=== PATIENT | female | born 1940 | race Caucasian/White ===

== ENCOUNTER → 2023-11-01 11:56 | Outpatient (REF) | payer MEDICARE, BC, SELFPAY | LOC: HWWDC 11:56 | PROVIDERS: ATTENDING PHYSICIAN Internal Medicine | DX: Z12.31 Encounter for screening mammogram for malignant neoplasm of breast (principal) | CPT/HCPCS: 77063; 77067 ==

== ENCOUNTER 2024-01-18 18:15 | Inpatient (IN) | payer MEDICARE, BC, SELFPAY ==
[2024-01-18] VITALS (12 sets, daily range): BP systolic 96–145; BP diastolic 60–89; BMI 29.6; BMI 27.4
--- NOTE | 2024-01-18 11:45 | EDRN ---
the PCT entered the pts room to perform EKG and the pt wanted to walk to the bathroom first per the pt and the pts daughter, the pt wanted to get up and walk to the bathroom, the pt was able to ambulate to the bathroom, the pt wanted privacy, this
RN will check back up on the pt
--- NOTE | 2024-01-18 11:50 | EDRN ---
the pt finished in the bathroom and was able to ambulate back to stretcher with no issues, CT called and is ready for the pt, the pt will go to CT first and then the pts EKG will be performed
[2024-01-18 11:54] LABS: % Basophils 0.7 % (0-2); % Immature Granulocytes 0.1 % (0-0.5); % Lymphocytes 23.9 % (20.5-51.1); % Monocytes 10.7 % (1.7-9.3); % Neutrophils 62.6 % (42.2-75.2); Absolute Basophils 0.1 10^3/uL (0-0.2); Absolute Eosinophils 0.1 10^3/uL (0-0.7); Absolute Lymphocytes 1.7 10^3/uL (1.2-3.4); Absolute Monocytes 0.7 10^3/uL (0.1-0.6); Absolute Neutrophils 4.3 10^3/uL (1.4-6.5); Hematocrit 39.9 % (37.0-47.0); Hemoglobin 13.3 g/dL (12.0-16.0); Mean Corp Hgb Conc. 33.3 g/dL (33.0-37.0); Mean Corpuscular Hgb 28.4 pg (27.0-31.0); Mean Corpuscular Volume 85.1 fL (81.0-99.0); Mean Platelet Volume 8.8 fL (7.4-10.4); Nucleated Red Blood Cells % 0 %; Platelet Count 301 10^3/uL (130-400); Red Blood Cell Count 4.69 10^6/uL (4.20-5.40); Red Cell Dist. Width 12.9 % (11.5-14.5); White Blood Cell Count 6.9 10^3/uL (4.8-10.8)
[2024-01-18 12:19] LABS: ALT (SGPT) 15 U/L (0-35); AST (SGOT) 24 U/L (14-36); Albumin 3.8 g/dl (3.5-5.0); Alkaline Phosphatase 94 U/L (38-126); Blood Urea Nitrogen 16 mg/dl (7-17); Calcium 9.6 mg/dl (8.4-10.2); Carbon Dioxide 27 mmol/L (22-30); Chloride 101 mmol/L (98-107); Estimated Creatinine Clearance 64 ml/min; Glucose 99 mg/dl (70-99); Potassium 4.5 mmol/L (3.5-5.1); Sodium 134 mmol/L (135-145); Total Bilirubin 0.5 mg/dl (0.2-1.3); Total Protein 6.3 g/dl (6.3-8.2); eGFR > 60.00
--- NOTE | 2024-01-18 12:34 | EDRN ---
awaiting for provider to see the pt
--- NOTE | 2024-01-18 12:52 | EDRN ---
awaiting for provider to see the pt
--- NOTE | 2024-01-18 13:55 | EDRN ---
Radha Mcmillan ENAMEL PULVERIZER currently at the pts bedside speaking to the pt and the pts daughter
--- NOTE | 2024-01-18 13:55 | ED.GENMED ---
History of Present Illness
<KAMI Bobby - Last Filed: 01/18/24 15:46>
General
Chief Complaint: Eye Problems
Source: patient
Exam Limitations: none
Time Seen by Provider: 01/18/24 13:26
Nursing documentation reviewed up to this point in time: agreed with
Travel History
Have you had any contact with someone who has COVID-19?: No
Do you have any symptoms of coronavirus? Fever > 100 degrees, chills, cough, shortness of breath, sore throat, loss of taste or smell, muscle aches, or headache?: No
History of Present Illness
History of Present Illness:
83-year-old female from [facility] sent to the ER for evaluation for double vision. Patient reports for the past 4 days she has had a headache and she felt soreness in her jaw. She thought this was because of chewing something hard. She was
seen by her family doctor for this. She fraser not typically get headaches . The pain in her jaw seemed to have gone away but she has had persistent headache. Last night she noticed while reading that she was having difficulty focusing and prior to
arrival she was walking and started to have double vision. She reports if she closes her left eye she does not have double vision. Her right eye however is blurry. She denies any actual eye pain or injury
Past History
<KAMI Bobby - Last Filed: 01/18/24 15:46>
Past History
ED Past Medical History: GERD, HTN, Hypercholesterolemia and Other (History of back pain, difficulty swallowing, hiatal hernia, stomach ulcers, arthritis, osteoarthritis, bilateral hearing impairment)
ED Past Surgical History: Other (Right and left knee arthroscopic procedures, right total knee replacement)
Social History
Personal:
Employment: Retired
Review of Systems
<KAMI Bobby - Last Filed: 01/18/24 15:46>
Review of Systems
Allergies reviewed?: Yes
Other source history: family
All Other Systems: ROS reviewed and negative except as documented in HPI and ROS
Constitutional: Reports no symptoms; Denies fever, fatigue or chills
EENT: Reports other (double vision when using both eyes right eye blurry )
Respiratory: Reports no symptoms
Cardiac: Reports no symptoms
ABD/GI: Reports no symptoms
: Reports no symptoms
Musculoskeletal: Reports other (pt has had jaw pain )
Skin: Reports no symptoms; Denies rash
Neurological: Reports headache; Denies dizzy
Endocrine: Reports no symptoms
Psychiatric: Reports no symptoms
Phy Exam
<KAMI Bobby - Last Filed: 01/18/24 15:46>
General Physical Exam
General Presentation: no apparent distress
General age: appears stated age
General Skin: warm and dry
General Habitus: elderly
General Mental: alert
General Hydration: appears well hydrated
ENT Exam
ENT Exam: EOMI and neck supple
Eye Exam
Eye Exam: PERRL, EOMI and other (right pupil reactive but slightly irregular )
Eye Exam General: PERRL: bilateral and EOM intact: bilateral
Pupil Exam: Bilateral: round and reactive
Cardiovascular Exam
Cardiovascular Exam: regular rate/rhythm, no murmur and normal peripheral pulses
Pulmonary Exam
Pulmonary Exam: lungs clear and no respiratory distress
Musculoskeletal Exam
Musculoskeletal Exam: full ROM
Skin Exam
Skin Exam: normal color and warm/dry
Psychiatric Exam
Psychiatric Exam: normal mood/affect
Course
<KAMI Bobby - Last Filed: 01/18/24 15:46>
Orders/Labs/Results
Orders:
Orders
01/18/24 Lunch
Cholesterol Lowering
At Your Request: Full Participation
Does patient need a safe tray?: No
Cholesterol Lowering: Sodium, 2 Gram
01/18/24 11:40
EKG [Electrocardiogram (*1)] Urgent
Reason for Study: Vertigo / Dizzy
EKG- Treatment ONCE
01/18/24 11:42
C-Reactive Protein Urgent
Comment: ADD ON
Complete Blood Count/With Diff Urgent
Comprehensive Metabolic Panel Urgent
Erythrocyte Sed Rate Urgent
Comment: ADD ON
01/18/24 11:44
CT Head W/o Iv Contrast Urgent
Comment:
Reason For Exam: double vision
01/18/24 14:25
Visual Acuity- Treatment ONCE
01/18/24 14:29
Add On- LAB Urgent
Tests Added?: sed rate ; crp
01/18/24 17:53
Admit/Transfer Patient As Directed
Co-Sign Provider:
Level of Care: Inpatient admission
Assign to:: Medical/Surgical
Physician / Group: Ian/Hospitalist
Diagnosis: Temporal arteritis, vision change
Reason for Hospitalization: insomnia, overactive bladder, OA b/l knees s/p TKA, paresthesia left arm,
esophageal dysphagia, glaucoma, Vit D deficiency, diverticulosis, colonic polyps,
hiatal hernia, monoclonal gammopathy
Expected length of stay greater than two midnights?: Yes
ELOS- Estimated Length of Stay in days: 3
I certify the patient meets the requirements for IP care: Yes
01/18/24 17:55
Code Status As Directed
Resuscitation Status: Full Code
01/18/24 18:00
MethylPREDNISolone. [Solu-Medrol] 500 mg 0.9% Sodium Chloride 100 ml [Nss] 100 ml IV ONCE
01/18/24 19:57
Atorvastatin [Lipitor] 10 mg PO QPM
Bisacodyl [Dulcolax] 10 mg RECTAL [id number] PRN
Docusate W/Senna [Senokot-S] 1 tablet PO BIDPRN PRN
Polyethylene Glycol Powder [Miralax] 17 grams PO DAILYPRN PRN
01/18/24 19:57
Add On- LAB Routine
Tests Added?: ESR
Vascular Surgery Consult Routine
Consulting Provider: Cornell Mayer III
Was physician already notified: Yes
Reason for consult: temporal artery biopsy
Activity As Directed
Activity Level: With Assistance
Pneumatic Compression Sleeves As Directed
Type: Knee high
Vital Signs As Directed
Frequency: Per unit guidelines
Pulse Ox/spot Check [RESP] Routine
Quantity: 1
DX Deep Vein Thrombosis Video Routine
01/18/24 20:07
Psyllium [Metamucil, Konsyl] 1 packet PO DAILYPRN PRN
01/18/24 22:00
Latanoprost [Xalatan Ophthalmic Solution] See Dose Instructions RIGHT EYE HS
01/19/24 06:00
Basic Metabolic Panel IN AM
Complete Blood Count/No Diff IN AM
Prothrombin Time IN AM
01/19/24 08:00
Ascorbic Acid [Vitamin C] 500 mg PO DAILY
Cyanocobalamin [Vitamin B-12] 1,000 mcg PO DAILY
Ezetimibe [Zetia] 10 mg PO DAILY
Lisinopril [Zestril] 10 mg PO DAILY
MethylPREDNISolone. [Solu-Medrol] 500 mg 0.9% Sodium Chloride 100 ml [Nss] 100 ml IV Q24H
Multivitamin [Theragran] 1 tablet PO DAILY
Pantoprazole [Protonix] 40 mg PO DAILY
Vitamin B Complex with C [B COMPLEX w/VITAMIN C] 1 caplet PO DAILY
glucosam-sod chondro-vit C-fartun 2 tablet PO DAILY
omega-3 fatty acids 1,000 mg PO DAILY
Abnormal Lab Results
01/18/24
11:42
Absolute Monos (auto) 0.7 H 10^3/uL
(0.1-0.6)
Monocytes % 10.7 H %
(1.7-9.3)
ESR 23 H mm/hour
(0-20)
Sodium 134 L mmol/L
(135-145)
C-Reactive Protein 31.30 H mg/L
(0.0-10.00)
01/18/24 11:42
01/18/24 11:42
Vital Signs
Initial and Last Documented VS:
Initial Vital Signs
BP
129/80
01/18/24 11:28
Last Documented Vital Signs
Temp Pulse Resp BP Pulse Ox
36.6 C 76 18 140/85 96
01/18/24 19:54 01/18/24 19:54 01/18/24 19:54 01/18/24 19:54 01/18/24 20:40
Steam Table Attendant consulted with Physician
Steam Table Attendant consulted with physician?: Yes
Name of Physician Consulted: Rosario
<Andrew Ponce MD - Last Filed: 01/18/24 23:11>
Orders/Labs/Results
Orders:
Orders
01/18/24 Lunch
Cholesterol Lowering
At Your Request: Full Participation
Does patient need a safe tray?: No
Cholesterol Lowering: Sodium, 2 Gram
01/18/24 11:40
EKG [Electrocardiogram (*1)] Urgent
Reason for Study: Vertigo / Dizzy
EKG- Treatment ONCE
01/18/24 11:42
C-Reactive Protein Urgent
Comment: ADD ON
Complete Blood Count/With Diff Urgent
Comprehensive Metabolic Panel Urgent
Erythrocyte Sed Rate Urgent
Comment: ADD ON
01/18/24 11:44
CT Head W/o Iv Contrast Urgent
Comment:
Reason For Exam: double vision
01/18/24 14:25
Visual Acuity- Treatment ONCE
01/18/24 14:29
Add On- LAB Urgent
Tests Added?: sed rate ; crp
01/18/24 17:53
Admit/Transfer Patient As Directed
Co-Sign Provider:
Level of Care: Inpatient admission
Assign to:: Medical/Surgical
Physician / Group: Ian/Hospitalist
Diagnosis: Temporal arteritis, vision change
Reason for Hospitalization: insomnia, overactive bladder, OA b/l knees s/p TKA, paresthesia left arm,
esophageal dysphagia, glaucoma, Vit D deficiency, diverticulosis, colonic polyps,
hiatal hernia, monoclonal gammopathy
Expected length of stay greater than two midnights?: Yes
ELOS- Estimated Length of Stay in days: 3
I certify the patient meets the requirements for IP care: Yes
01/18/24 17:55
Code Status As Directed
Resuscitation Status: Full Code
01/18/24 18:00
MethylPREDNISolone. [Solu-Medrol] 500 mg 0.9% Sodium Chloride 100 ml [Nss] 100 ml IV ONCE
01/18/24 19:57
Atorvastatin [Lipitor] 10 mg PO QPM
Bisacodyl [Dulcolax] 10 mg RECTAL [id number] PRN
Docusate W/Senna [Senokot-S] 1 tablet PO BIDPRN PRN
Polyethylene Glycol Powder [Miralax] 17 grams PO DAILYPRN PRN
01/18/24 19:57
Add On- LAB Routine
Tests Added?: ESR
Vascular Surgery Consult Routine
Consulting Provider: Cornell Mayer III
Was physician already notified: Yes
Reason for consult: temporal artery biopsy
Activity As Directed
Activity Level: With Assistance
Pneumatic Compression Sleeves As Directed
Type: Knee high
Vital Signs As Directed
Frequency: Per unit guidelines
Pulse Ox/spot Check [RESP] Routine
Quantity: 1
DX Deep Vein Thrombosis Video Routine
01/18/24 20:07
Psyllium [Metamucil, Konsyl] 1 packet PO DAILYPRN PRN
01/18/24 22:00
Latanoprost [Xalatan Ophthalmic Solution] See Dose Instructions RIGHT EYE HS
01/19/24 06:00
Basic Metabolic Panel IN AM
Complete Blood Count/No Diff IN AM
Prothrombin Time IN AM
01/19/24 08:00
Ascorbic Acid [Vitamin C] 500 mg PO DAILY
Cyanocobalamin [Vitamin B-12] 1,000 mcg PO DAILY
Ezetimibe [Zetia] 10 mg PO DAILY
Lisinopril [Zestril] 10 mg PO DAILY
MethylPREDNISolone. [Solu-Medrol] 500 mg 0.9% Sodium Chloride 100 ml [Nss] 100 ml IV Q24H
Multivitamin [Theragran] 1 tablet PO DAILY
Pantoprazole [Protonix] 40 mg PO DAILY
Vitamin B Complex with C [B COMPLEX w/VITAMIN C] 1 caplet PO DAILY
glucosam-sod chondro-vit C-fartun 2 tablet PO DAILY
omega-3 fatty acids 1,000 mg PO DAILY
Abnormal Lab Results
01/18/24
11:42
Absolute Monos (auto) 0.7 H 10^3/uL
(0.1-0.6)
Monocytes % 10.7 H %
(1.7-9.3)
ESR 23 H mm/hour
(0-20)
Sodium 134 L mmol/L
(135-145)
C-Reactive Protein 31.30 H mg/L
(0.0-10.00)
01/18/24 11:42
01/18/24 11:42
Vital Signs
Initial and Last Documented VS:
Initial Vital Signs
BP
129/80
01/18/24 11:28
Last Documented Vital Signs
Temp Pulse Resp BP Pulse Ox
36.6 C 76 18 140/85 96
01/18/24 19:54 01/18/24 19:54 01/18/24 19:54 01/18/24 19:54 01/18/24 20:40
<KAMI Bobby - Last Filed: 01/18/24 15:46>
MDM/Problems Addressed
Differential Diagnosis Includes:
not limited to: Intracranial hemorrhage temporal arteritis stroke
MDM/Problems Addressed:
Symptoms are consistent with temporal arteritis. Patient started 4 days ago with headache, jaw discomfort and today had episode of double vision with blurriness from right eye. Patient is on a blood thinner she is awake alert no acute distress.
Double vision occurring with both eyes open does improve when she closes her left eye. Her right eye however she reports is blurry. She has no other focal deficits. Denies any fevers . CT head negative. Case discussed with Dr. Ponce who eval
pt. d/c w/ vascular . will adm order IV steroids.
Case discussed with vascular surgery Dr. Mayer who will see patient tomorrow to evaluate and then plan for outpatient biopsy.
<KAMI Bobby - Last Filed: 01/18/24 15:46>
*Radiology
Radiology exam reviewed: radiology read reviewed
*Pulse Oximetry
Patient hypoxic: no
*EKG
Interpretation: normal
Heart Rate: 70
Rate: normal
Rhythm: sinus
Ischemia: no ischemia
*Critical Care Note
Total Time (30-74mins, 75-104mins- exclusive of procedures): Not Applicable
ED Attending Note
<KAMI Bobby - Last Filed: 01/18/24 15:46>
-
Portions of this chart may have been created with voice recognition software.� Occasional wrong word or��sound alike� substitutions may have occurred due to the inherent limitations of voice recognition software.
<Andrew Ponce MD - Last Filed: 01/18/24 23:11>
ED Attending Note
Patient seen and examined by attending physician: Yes
ED Attending Note:
I have seen and evaluated the patient with a [id number] encounter. I have spoken to the advance practicer provider and involved in the medical history, the physical exam, medical decision making.
Evaluation and management service: agree unless noted differently below.
Results interpretation: agree unless noted differently below.
Focused HPI: 83-year-old female with history as document presents for evaluation of jaw pain, headaches, visual disturbance. Patient reports that a few days ago she started to notice some soreness in the temporal region/jaw particularly with
chewing or opening her mouth. She says she developed mild headache associated with this. She says that this morning she woke up and noticed that she was having some blurry vision in her right eye. She spoke with truck shop mechanic who referred her
to the emergency room for assessment. She has not had any loss of vision. She denies any change in her left eye vision. She denies any eye pain. She denies any fevers or chills. She denies any other complaints.
Physical exam: Awake alert not in distress. Vital signs normal. She has no significant tenderness to percussion of the temporal region. Pupils are equal round and reactive to light bilaterally. She has intact extraocular movement without gaze
palsy. No cranial nerve deficits, motor and sensory function intact in all extremities.
Medical Decision Makin-year-old female presents for evaluation of jaw pain, headaches and now right eye visual disturbance. Vitals are normal and exam as above. Clinical concern for temporal arteritis given age and history. Labs sent off
including CBC and CMP which were unremarkable. Her ESR and CRP are slightly elevated. CT head was negative. Case discussed with vascular surgery for consultation. Treat with high-dose steroid. Admit for continued evaluation and treatment.
Discharge Plan
Departure
Patient Disposition: Admit
Date of Disposition: 01/18/24
Time of Disposition: 16:16
Admit to: Med/Surg
Admit to doctor: hospitalist
Presentation/result/management discussed w/ accepting MD/DO: Hospitalist
Condition: Fair
Covid-19: Not Applicable
Discharge Problem:
Temporal arteritis
Interventions
Interventions:
*Risk Screen - Suicide Last Done: 01/18/24 11:29
*General Assessment Last Done: 01/18/24 11:29
*Neglect/Abuse Screening Last Done: 01/18/24 11:29
ED- Fall Risk Assessment Last Done: 01/18/24 11:29
*ED COVID-19 Vaccine History Last Done: 01/18/24 11:29
*Nursing Disposition Last Done: 01/18/24 18:51
Discharge Date and Time
Discharge Date/Time: 01/18/24 19:42
[2024-01-18 14:47] LABS: Erythrocyte Sed Rate 23 mm/hour (0-20)
--- NOTE | 2024-01-18 15:08 | EDRN ---
Dr. Ponce currently at the pts bedside speaking with the pt and the pts daughter
--- NOTE | 2024-01-18 16:38 | EDRN ---
the pt pressed the call gilbert and the PCT entered the pts room, the PCT unhooked the pt to go to the bathroom and the pt also asked the PCT if she could make her an eye patch due to seeing double in her right eye, provide notified
--- NOTE | 2024-01-18 16:50 | EDRN ---
Dr. Sosa currently at the pts bedside speaking to the pt and the pts daughter regarding admission
--- NOTE | 2024-01-18 17:30 | HPS.HSE ---
Addendum entered and electronically signed by Sisi Sosa DO 01/18/24 18:05:
Aspirin ok per Vascular-earliest for temporal biopsy will by Saturday
will cont aspirin, cont diet for now
check ESR
cont IV Solu-Medrol 500 mg daily
Original Note:
Family Physician
-
Family Physician: Vera Martinez
Chief Complaint
-
BORRERO, vision change
History of Present Illness
The patient is a pleasant 83 yo woman with PMH significant for HTN, HLD, GERD, insomnia, right eye glaucoma, OA, monoclonal gammopathy, who presents to the ED due to 4-5 days jaw pain-started after eating bread sticks, patient thought she hurt her
jaw from chewing, b/l jaw pain followed by b/l temporal and frontal headache worse on right. This was followed by vision changes, blurry in right eye and horizontal double vision that is improved when she covers her right eye. She has never had
these symptoms before. No CP, no SOB, no fevers, no chills, no n/v/d, no abdominal c/o. No dysuria. No bleeding, no bruising, no skin lesions. CT head in ED no acute findings. CRP 31.30
ED txt: Vasc Sx Cx and IV Solu-Medrol 500 mg once
Medical History
Past Medical History
Past Medical History: Reports GERD, HTN, Hypercholesterolemia and Other (insomnia, overactive bladder, OA b/l knees s/p TKA, paresthesia left arm, esophageal dysphagia, glaucoma, Vit D deficiency, diverticulosis, colonic polyps, hiatal hernia,
monoclonal gammopathy)
Past Surgical History: Reports Orthopedic (b/l knee replacement, spinal fusion)
Social History
Tobacco: Non-smoker
Alcohol: None
Drug: None
Living: With Roomate ([employer])
Family History
Family History: Other (F- TB; M-Parkinson's Dx Siblings CA, prostate)
Allergies / Home Medications
Allergies reflects when Allergies were last updated in [facility].
Home Medications with original date entered in [facility]
Allergy/Medication List:
Allergies
Allergy/AdvReac Type Severity Reaction Status Date / Time
acetaminophen [From Vicodin] Allergy vomiting, Verified 03/29/15 09:30
severe
abdominal
pain
codeine Allergy Nausea / Verified 03/29/15 08:47
Vomiting
hydrocodone bitartrate Allergy vomiting, Verified 03/29/15 09:30
[From Vicodin] severe
abdominal
pain
oxycodone HCl [From Percocet] Allergy Nausea/vomi Verified 03/29/15 08:47
ting
Penicillins Allergy Anaphylaxis Verified 03/29/15 09:30
''
Home Medications
ascorbic acid (vitamin C) 500 mg chewable tablet (Vitamin C) 500 mg PO DAILY 09/11/11
atorvastatin 10 mg tablet (Lipitor) 10 mg PO QPM 09/11/11
ezetimibe 10 mg tablet (Zetia) 10 mg PO DAILY 09/11/11
omeprazole 20 mg tablet,delayed release 20 mg PO DAILY ##0 09/11/11
B-complex with vitamin C (Super B/C capsule) 1 tab PO DAILY 03/16/15
aspirin 81 mg tablet,delayed release 81 mg PO DAILY 01/18/24
cyanocobalamin (vitamin B-12) 1,000 mcg tablet (Vitamin B-12) 1,000 mcg PO DAILY 01/18/24
diclofenac sodium 1 % topical gel 0 g topical DAILYPRN PRN left hand 01/18/24
glucosam-sod chondro-vit C-fartun tablet 2 tab PO DAILY 01/18/24
ibuprofen 200 mg tablet (Advil) 200 mg PO BIDPRN PRN mild pain 01/18/24
latanoprost 0.005 % eye drops 1 drp RIGHT EYE HS 01/18/24
lisinopril 10 mg tablet 10 mg PO DAILY 01/18/24
meloxicam 7.5 mg tablet 7.5 mg PO DAILYPRN PRN mild pain 01/18/24
omega-3 fatty acids 1,000 mg PO DAILY 01/18/24
psyllium 1 packet PO DAILYPRN PRN constipation 01/18/24
therapeutic multivitamin 1 tab PO DAILY 01/18/24
Review of Systems
-
A 12 point ROS was completed and negative except as noted: Yes
Physical Exam
Vital Signs
Vital Signs
Temp Pulse Resp BP Pulse Ox
97.2 F 75 17 124/89 96
01/18/24 15:17 01/18/24 16:00 01/18/24 16:00 01/18/24 16:00 01/18/24 16:00
Physical Exam
General: Well Developed, Well Nourished and No Apparent Distress
HEENT: Other (right pupil equal and reactive, shaped oblong, not circular compared to left)
Respiratory: Clear
Cardiac: S1/S2 and Regular Rhythm
GI: Soft, Non Tender and Non Distended
Musculoskeletal: No Clubbing, No Cyanosis and No Edema
Neuro: No Motor Deficits and Nonfocal/grossly intact
Psych: Calm
Laboratory Results
-
01/18/24 11:42
01/18/24 11:42
Laboratory Results
Total Bilirubin 0.5 mg/dl (0.2-1.3) 01/18/24 11:42
AST 24 U/L (14-36) 01/18/24 11:42
ALT 15 U/L (0-35) 01/18/24 11:42
Alkaline Phosphatase 94 U/L (38-126) 01/18/24 11:42
Impression/Plan
-
IMPRESSION:
The patient is a pleasant 83 yo woman with PMH significant for HTN, HLD, GERD, insomnia, right eye glaucoma, OA, monoclonal gammopathy, who presents to the ED due to 4-5 days jaw pain-started after eating bread sticks, patient thought she hurt her
jaw from chewing, b/l jaw pain followed by b/l temporal and frontal headache worse on right. This was followed by vision changes, blurry in right eye and horizontal double vision that is improved when she covers her right eye. She has never had
these symptoms before. No CP, no SOB, no fevers, no chills, no n/v/d, no abdominal c/o. No dysuria. No bleeding, no bruising, no skin lesions. CT head in ED no acute findings. CRP 31.30
ED txt: Vasc Sx Cx and IV Solu-Medrol 500 mg once
#Concern for temporal arteritis w jaw claudication, horizontal double vision, headache, vision changes.
-cont IV steroid daily x 3 days
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
-Vascular sx to see the patient in the am, for temporal artery biopsy
Chronic medical issues stable :
insomnia,
overactive bladder,
OA b/l knees s/p b/l TKA,
paresthesia left arm,
esophageal dysphagia,
glaucoma,
Vit D deficiency,
diverticulosis,
colonic polyps,
hiatal hernia,
monoclonal gammopathy
PLAN:
-admit medsurg
-IV steroids
-Vasc Surgery consult
-f/u OP with her Medical Office Technology Instructor , monitor symptoms closely in hospital
-prn melatonin for insomnia for now
DVT proph
Full Code
[2024-01-18] MEDS: SOLU-MEDROL 108 MG IV (18:35)
--- NOTE | 2024-01-18 18:51 | EDRN ---
this RN called the receiving unit and notified them that paper report was going to be tubed up
[2024-01-18] MEDS: LIPITOR 10 MG PO (20:32)
[2024-01-18] MEDS: XALATAN OPHTHALMIC SOLUTION 1 DROP RIGHT EYE (21:01)
--- NOTE | 2024-01-18 21:30 | PTCARENOTE ---
Receive pt from ER. Pt alert oriented X3, calm and pleasant, in no distress. Pt assisted to her bed, steady on her feet. Pt oriented to the room, call gilbert within reach. Pt states that she had a right temporal headache. The pain is 5/10 down from
8/10 when she presented to ER. Pt denies any tenderness to the right temporal area. Pt also reports double vision with both eyes open that resolves when she covers her right eye. Pt states that her right eye vision is blurry. Pt denies any pain to
the right eye, and no redness noted. VSS (T=97.8, HR=76, RR=16, NZ=481/85, SpO2=96% on RA). Will continue to monitor the pt.
[2024-01-19] MEDS: MOTRIN 400 MG PO (06:09)
[2024-01-19 07:07] VITALS: BP 122/80
--- NOTE | 2024-01-19 07:52 | CON.VAS ---
Consultation
Consultation Request
Date/Time Consultation Requested: 01/18/24
Date/Time Consultation Performed: 01/19/24
Requesting Provider: Ian
Performing Provider: Leyla
Reason for Consultation: temporal arteritis
Medical History
-
Chief Complaint: headaches/jaw pain/vision changes
History of Present Illness:
83 yo female
Recent onset of frontal/temporal headaches x 1 week
Jaw pain
Vision changes in right eye ('fuzzy, blurry') when covering her left eye
Diplopia noted when looking with both eyes open
No vision loss or temporary blindness
No other focal neuro symptoms
Denies fevers/chills/night sweats/weight loss
Past Medical History
Past Medical History: GERD, Hypercholesterolemia and Other (osteoarthritis)
Allergies / Home Medications
Allergy/AdvReac Type Severity Reaction Status Date / Time
acetaminophen [From Vicodin] Allergy vomiting, Verified 03/29/15 09:30
severe
abdominal
pain
codeine Allergy Nausea / Verified 03/29/15 08:47
Vomiting
hydrocodone bitartrate Allergy vomiting, Verified 03/29/15 09:30
[From Vicodin] severe
abdominal
pain
oxycodone HCl [From Percocet] Allergy Nausea/vomi Verified 03/29/15 08:47
ting
Penicillins Allergy Anaphylaxis Verified 03/29/15 09:30
''
�Medication �Instructions �Recorded �Confirmed �Type
ascorbic acid (vitamin C) 500 mg 500 mg PO DAILY 09/11/11 01/18/24 History
chewable tablet (Vitamin C)
atorvastatin 10 mg tablet (Lipitor) 10 mg PO QPM 09/11/11 01/18/24 History
ezetimibe 10 mg tablet (Zetia) 10 mg PO DAILY 09/11/11 01/18/24 History
omeprazole 20 mg tablet,delayed 20 mg PO DAILY ##0 09/11/11 01/18/24 History
release
B-complex with vitamin C (Super 1 tab PO DAILY 03/16/15 01/18/24 History
B/C capsule)
aspirin 81 mg tablet,delayed 81 mg PO DAILY 01/18/24 01/18/24 History
release
cyanocobalamin (vitamin B-12) 1,000 mcg PO DAILY 01/18/24 01/18/24 History
1,000 mcg tablet (Vitamin B-12)
diclofenac sodium 1 % topical gel 0 g topical DAILYPRN PRN left hand 01/18/24 01/18/24 History
glucosam-sod chondro-vit C-fartun 2 tab PO DAILY 01/18/24 01/18/24 History
tablet
ibuprofen 200 mg tablet (Advil) 200 mg PO BIDPRN PRN mild pain 01/18/24 01/18/24 History
latanoprost 0.005 % eye drops 1 drp RIGHT EYE HS 01/18/24 01/18/24 History
lisinopril 10 mg tablet 10 mg PO DAILY 01/18/24 01/18/24 History
meloxicam 7.5 mg tablet 7.5 mg PO DAILYPRN PRN mild pain 01/18/24 01/18/24 History
omega-3 fatty acids 1,000 mg PO DAILY 01/18/24 01/18/24 History
psyllium 1 packet PO DAILYPRN PRN 01/18/24 01/18/24 History
constipation
therapeutic multivitamin 1 tab PO DAILY 01/18/24 01/18/24 History
Review of Systems
-
History Source: Patient
All other systems: Negative unless noted
Physical Exam
Vital Signs
Temp Pulse Resp BP Pulse Ox
98.3 F 90 18 118/69 92
01/18/24 23:26 01/18/24 23:26 01/18/24 23:26 01/18/24 23:26 01/18/24 23:26
Physical Exam
General: Well Developed, Well Nourished and No Apparent Distress
HEENT: Normocephalic and Other (Palp temporal pulses bilat)
Respiratory: Non Labored Respirations
Skin: Warm and Dry
Neuro: AO x 3
Assessment / Plan
-
Symptom constellation and laboratory findings concerning for temporal arteritis.
Will plan for bilat TA Bxp. Likely Saturday with Padilla.
Patient agrees with plan
[2024-01-19] MEDS: SOLU-MEDROL 108 MG IV (09:08)
[2024-01-19] MEDS: FLUSH (NSS) 2 FLUSH IV (09:08)
[2024-01-19] MEDS: B COMPLEX w/VITAMIN C 1 CAPLET PO (09:09)
[2024-01-19] MEDS: VITAMIN B-12 1000 MCG PO (09:09)
[2024-01-19] MEDS: PROTONIX 40 MG PO (09:09)
[2024-01-19] MEDS: THERAGRAN 1 TABLET PO (09:09)
[2024-01-19] MEDS: ZETIA 10 MG PO (09:10)
[2024-01-19] MEDS: ZESTRIL 10 MG PO (09:10)
[2024-01-19] MEDS: VITAMIN C 500 MG PO (09:10)
[2024-01-19 09:13] LABS: Hematocrit 40.2 % (37.0-47.0); Hemoglobin 13.3 g/dL (12.0-16.0); Mean Corp Hgb Conc. 33.1 g/dL (33.0-37.0); Mean Corpuscular Hgb 27.4 pg (27.0-31.0); Mean Corpuscular Volume 82.7 fL (81.0-99.0); Platelet Count 334 10^3/uL (130-400); Red Blood Cell Count 4.86 10^6/uL (4.20-5.40); Red Cell Dist. Width 12.9 % (11.5-14.5); White Blood Cell Count 4.7 10^3/uL (4.8-10.8)
[2024-01-19 09:31] LABS: INR 0.99; PT 12.9 Sec (11.4-14.6)
[2024-01-19 09:34] LABS: Blood Urea Nitrogen 21 mg/dl (7-17); Calcium 9.7 mg/dl (8.4-10.2); Carbon Dioxide 24 mmol/L (22-30); Chloride 102 mmol/L (98-107); Estimated Creatinine Clearance 65 ml/min; Glucose 136 mg/dl (70-99); Potassium 4.4 mmol/L (3.5-5.1); Sodium 135 mmol/L (135-145); eGFR > 60.00
--- NOTE | 2024-01-19 11:19 | W.PN.HOSP.TC ---
Today's Communication/Plan
-
IV steroids
TA Bx
MRI Brain
Assessment / Plan
Assessment / Plan
83-year-old female presented with vision change. She has had 4 to 5 days of jaw pain and also headache worse on the right side. This is followed by vision changes blurry vision in the right eye double vision.
Awake and alert
Diplopia with both eyes open
Decreased vision right eye
No unilateral diplopia
I could not find any extraocular muscle palsy
No facial droop
Strength 5 x 5 upper extremity and lower extremity
Cardiovascular system S1-S2 appreciated
Chest clear to auscultation
Abdomen soft and nontender
# Visual changes
On high-dose Solu-Medrol to treat temporal arteritis
Temporal artery biopsy pending-vascular consulted
MRI of the brain with and without contrast
Neurology evaluation-routine
Continue aspirin and statin
# Hypertension-lisinopril
# Hyperlipidemia-continue statin, Zetia

# Monoclonal gammopathy
# Chronic paresthesias left arm
# Esophageal dysphagia/GERD/peptic ulcer disease/hiatal hernia-continue PPI
# Glaucoma
# Diverticulosis
# Chronic back pain/herniated disc/arthritis
# Obesity per BMI
# DVT prophylaxis-SCds
# Full code
Discussed with nursing
Discussed with neurology
Anticipated Discharge: > 48 hours
Subjective/Interval History
-
Date of Service: January 19, 2024
Objective Data
-
Labs:
Laboratory Results
01/19/24
08:21
WBC 4.7 L
Hgb 13.3
Hct 40.2
Plt Count 334
PT 12.9
INR 0.99
Sodium 135
Potassium 4.4
Chloride 102
Carbon Dioxide 24
BUN 21 H
Creatinine 0.6
Glucose 136 H
Calcium 9.7
Vital Signs:
Vital Signs
Temp Pulse Resp BP Pulse Ox
97.8 F 79 18 122/80 96
01/19/24 07:07 01/19/24 09:10 01/19/24 07:07 01/19/24 09:10 01/19/24 07:07
I&O
01/18/24 01/19/24 01/20/24
06:59 06:59 06:59
Intake Total 0 / 0
Balance 0 / 0
[2024-01-19 15:45] VITALS: BP 121/74
[2024-01-19] MEDS: LIPITOR 10 MG PO (17:00)
[2024-01-19] MEDS: XALATAN OPHTHALMIC SOLUTION 1 DROP RIGHT EYE (22:00)
[2024-01-19 23:32] VITALS: BP 97/58
[2024-01-20] VITALS (9 sets, daily range): BP systolic 84–128; BP diastolic 56–85
--- NOTE | 2024-01-20 08:15 | W.PN.HOSP.TC ---
Today's Communication/Plan
-
see bold
Assessment / Plan
Assessment / Plan
Gen: NAD, AAOx3.
Eyes: EOMI, PERRLA, no scleral icterus.
Neck: supple.
CV: RRR, +S1/S2, no m/r/g.
Resp: CTAB, no rales, wheezes, or rhonchi.
Abd: +BS, soft, NT, ND
Skin: No rashes.
Neuro: CN 2-12 intact, non-focal.
Psych: Normal mood and affect.
MRI brain: No acute intracranial abnormality noted. Atrophy.
Visual changes:
-currently treating his presumed temporal arteritis with Solu-Medrol
-Vascular to do temporal artery biopsy today
-MRI brain above
-neurology c/s
-cont ASA/statin
Essential Hypertension: cont lisinopril
Hyperlipidemia: continue statin/Zetia
h/o Monoclonal gammopathy
Chronic paresthesias left arm
Esophageal dysphagia/GERD/peptic ulcer disease/hiatal hernia: continue PPI
Glaucoma
Chronic back pain/herniated disc/arthritis
FULL/SCDs
Anticipated Discharge: Within 24 hours
Subjective/Interval History
-
Date of Service: January 20, 2024
diplopia improving.
Objective Data
-
Vital Signs:
Vital Signs
Temp Pulse Resp BP Pulse Ox
98.4 F 66 18 119/85 100
01/20/24 08:12 01/20/24 08:12 01/20/24 08:12 01/20/24 08:12 01/20/24 08:12
I&O
01/19/24 01/20/24 01/21/24
06:59 06:59 06:59
Intake Total 0 / 0 888 / 888
Balance 0 / 0 888 / 888
--- NOTE | 2024-01-20 08:28 | CON.NEURO4 ---
Consultation - Neurology 4
-
CONSULTING PHYSICIAN: Aletha Chavis
REFERRING PHYSICIAN: Hospitalist
DICTATED BY: Aletha Chavis
DATE/TIME OF REQUEST: 01/20/24
DATE/TIME OF CONSULTATION: 01/20/24
Reason for Consultation: Diplopia, concern for giant cell arteritis
History of Present Illness:
The patient is an 83-year-old right-handed woman with a past medical history of hypertension and osteoarthritis presented to hospital with binocular horizontal diplopia, new headaches, jaw claudication.
Patient began to experience new headaches approximately 1 week ago as well as jaw claudication when chewing food which is a new change for her. She previously had had some tension headaches to a minor extent before menopause but in general does not
get headaches regularly. Headache described as bilateral in the frontal and temporal regions.
On Saturday morning she noted significant new vision change with horizontal binocular diplopia that is worse at a distance. She called her mophead trimmer and wrapper who recommended she go to the ER.
No recent head or neck trauma, had glaucoma surgery to the right eye and has some preexisting vision difficulty in right eye, wears glasses, no other chronic ocular conditions. No history of stroke or TIA. Has joint pains but no muscle aches,
fevers, or unusual weight loss.
ESR 23 and CRP 31.3, started on 500 mg IV Methylprednisolone out of concern for giant cell arteritis, seen by vascular surgery with planned temporal artery biopsy today.
Patient reports headaches have improved some since the steroids have started, still has the double vision.
Past Medical History: Hypertension, hyperlipidemia, insomnia, osteoarthritis, monoclonal gammopathy, diverticulosis, glaucoma
Surgical History: Bilateral knee replacements, cataract surgery, spinal fusion
Family History: Reviewed and non-contributory
Social History: Retired from real estate about 3 years ago, her passed about 2 years ago, has adult children and grandchildren, lives at [facility] with roommate, active with gardening and other activities, no tobacco or alcohol
Review of Symptoms:
Patient denies any fever, chest pain, shortness of breath, GI or symptoms. Positive for headache
Physical Exam:
Elderly woman comfortable well-nourished no head or neck trauma, some erythema of the face bilaterally, eyes are clear oropharynx is clear neck supple no masses heart rate regular breathing unlabored abdomen soft nontender no lower extremity edema.
Neurologic Examination:
The patient is awake, alert and oriented x 3. She is able to follow commands and answer questions appropriately. There is no aphasia or dysarthria. On cranial nerve assessment, pupils are 3 mm bilateral, round and reactive to light and
accommodation. Visual vásquez are full. Extraocular movements are intact no obvious limitation in abduction of either eye. Facial sensations are intact and bilaterally symmetrical, there is no facial asymmetry. Hearing is intact bilaterally to
normal conversation volume. Tongue palate and uvula are midline. Sternocleidomastoid strengths are full bilaterally. Motor strengths are 5/5 bilateral upper and lower extremities on medical research Quincy scale. There is no drift or involuntary
movement noted. Deep tendon reflexes are 2+ bilateral upper and lower extremities and Babinski is absent bilaterally. Sensations of pain, touch, temperature and vibration are intact and bilaterally symmetrical. There was no extinction noted on
double simultaneous stimulation. Coordination is intact by finger to nose bilaterally.
Neuro Imaging: MRI brain with without contrast no acute or chronic infarction no hemorrhage no masses or edema
Impressions
1. Most likely a cranial nerve palsy (not clear on which side) leading to the binocular diplopia. High degree of suspicion that the cranial nerve palsy is due to new diagnosis of giant cell arteritis given headaches jaw claudication and
elevated CRP and ESR in a patient of appropriate age for the diagnosis. MRI brain is ruled out any pontine infarct. Unlikely this is a CN 6th palsy due to simply hypertension or microvascular disease given symptoms of headache and jaw claudication
and greatly elevated CRP/ESR.
2.
3.
4.
Recommendations:
1. Would give 3 days 500 mg IV methylprednisolone, (day 2/3 today) afterwards transition to 50 to 60 mg p.o. prednisone
2. Planned for temporal artery biopsy
3. Continue PPI as likely will be on chronic steroids
4. Seek ophthalmology and rheumatology follow up
5. Eye patching for the diplopia
Call with questions and concerns
Discussed patient care with: Patient
[2024-01-20] MEDS: B COMPLEX w/VITAMIN C 1 CAPLET PO (08:59)
[2024-01-20] MEDS: PROTONIX 40 MG PO (08:59)
[2024-01-20] MEDS: SOLU-MEDROL 108 MG IV (08:59)
[2024-01-20] MEDS: VITAMIN C 500 MG PO (09:00)
[2024-01-20] MEDS: THERAGRAN 1 TABLET PO (09:00)
[2024-01-20] MEDS: VITAMIN B-12 1000 MCG PO (09:00)
[2024-01-20] MEDS: ZETIA 10 MG PO (09:00)
[2024-01-20] MEDS: ZESTRIL 10 MG PO (09:00)
--- NOTE | 2024-01-20 11:47 | PTCARENOTE ---
Pt is off the floor at this time to OR for temporal artery biopsy.
--- NOTE | 2024-01-20 12:10 | W.SUR.PREOP ---
Pre-Operative Surgical Note
-
I have examined this patient prior to the performance of the scheduled procedure.
The patient's condition is unchanged from the time of the current History and
Physical and the patient is able to undergo the scheduled procedure.
--- NOTE | 2024-01-20 12:56 | W.SUR.POST ---
Surgical Immediate Post Op
Note
Pre Op Diagnosis: Temporal arteritis
Post Op Diagnosis: Same
Procedure Performed: Bilateral temporal artery biopsy
Primary Surgeon: Randy
Assist: Zac MCCLURE
Anesthesia: Local and sedation
Estimated Blood Loss: 2 cc
Fluids: See anesthesia flowsheet
Drains/Shunts: None
Specimens/Cultures: none
Doppler/Duplex/Angio (Y/N): Y
Complications: none
Operative Findings: Successful biopsy
--- NOTE | 2024-01-20 13:03 | OR.RPT ---
Operative Report
Operative Report
PROCEDURE DATE: 01/20/2024
Preoperative diagnosis: Temporal arteritis
Postoperative diagnosis: Same
Procedure: Bilateral temporal artery biopsies.
Surgeon: Randy
Gasket Inspector: Zac
Complications: None
Anesthesia: Local, sedation
Indications for procedure:
Concern for temporal arteritis. Admitted and we were consulted for possible temporal artery biopsy. Risk/benefit/alternatives all discussed with patient. She understood all wish to proceed.
Description of procedure:
Patient was identified brought to the operating room placed on the table in supine position. After the adequate administration of anesthesia and perioperative antibiotics she was prepped and draped in the standard surgical fashion. A standard
preoperative timeout was undertaken and everybody was in agreement the plan. A longitudinal incision was made in the scalp just anterior and superior to the superiormost aspect of the pinna of the right ear (overlying the palpable pulsation of the
artery) after infiltration of the skin and subcutaneous tissue with 1% lidocaine. This was carried down through the subcutaneous layer and the fascia layer with electrocautery. The superficial temporal artery was identified. It was mobilized
using sharp dissection. It was then ligated proximally and distally as well as a branch ligated all with silk ties and a clip. I then transected the artery. This was then sent for specimen. I noted that the wall was somewhat thinned and I was
not 100% certain that this was the artery not the vein, but given that I did not localize the artery in this field, I sent to this initially for specimen.
A similar incision was made in the left scalp just anterior and superior to the superiormost aspect of the pinna of the left ear (overlying the palpable pulsation of the artery) after infiltration of the skin and subcutaneous tissue with 1%
lidocaine. Similarly this was carried down through the subcutaneous tissue and fascial layer with the electrocautery. The superficial temporal artery was identified and was mobilized using sharp dissection. It was noted to be clearly enlarged,
tortuous, thickened. It was then ligated proximally and distally as well as a branch ligated all with silk ties and a clip. I then transected the artery. This was then sent for specimen.
Given the appearance of the left-sided artery, I reexplored the right side adjacent to the vessel and ligated and sent for specimen. I confirmed that there was indeed an adjacent artery that was thickened and similar in caliber to the contralateral
side. This was therefore then ligated proximally and distally with silk ties and clips. I then transected approximately distally and sent for specimen. (The original small vein specimen was discarded).
Both incision sites were then irrigated. Hemostasis was achieved and confirmed. I then closed in layers using 3-0 Vicryl deep dermal layer followed by 4-0 Monocryl subcuticular running layer (this was completed bilaterally). Dermabond was then
applied bilaterally. Patient tolerated procedure well.
--- NOTE | 2024-01-20 14:10 | PTCARENOTE ---
Pt returned from OR s/p temporal artery biopsy. Pt AAOx3. VSS. B/l mandaen incisions noted to be CDI, closed with surgiglue and JHOANA. Pt instructed to ring for assistance if getting OOB post op.
--- NOTE | 2024-01-20 14:53 | CM ---
Patient seen bedside, initial assessment completed. Patient reports she resides in [facility] independent living, denies DME, VN, or SNF. Patient reports she has had outpatient PT after her knee replacements. Patient confirms PCP Vera Martinez,
reports she is retiring and she will be transitioning to Dr. Del Valle at [facility]. Patient reports pharmacy used is [facility]. Patient confirms she has prescription coverage, denies food insecurities. Patient requesting her medical records
upon discharge, form provided to patient. CM will continue to follow for discharge planning needs.
Plan; home no needs.
[2024-01-20] MEDS: LIPITOR 10 MG PO (17:10)
[2024-01-20] MEDS: XALATAN OPHTHALMIC SOLUTION 1 DROP RIGHT EYE (21:42)
[2024-01-21] MEDS: PROTONIX 40 MG PO (08:20)
[2024-01-21] MEDS: B COMPLEX w/VITAMIN C 1 CAPLET PO (08:20)
[2024-01-21] MEDS: ZESTRIL 10 MG PO (08:20)
[2024-01-21] MEDS: SOLU-MEDROL 108 MG IV (08:20)
[2024-01-21] MEDS: THERAGRAN 1 TABLET PO (08:20)
[2024-01-21] MEDS: VITAMIN B-12 1000 MCG PO (08:20)
[2024-01-21] MEDS: VITAMIN C 500 MG PO (08:20)
[2024-01-21] MEDS: ZETIA 10 MG PO (08:20)
--- NOTE | 2024-01-21 08:20 | W.PN.HOSP.TC ---
Addendum entered and electronically signed by Jasen Mueller MD 01/21/24 13:14:
Total time spent on d/c = 31 min. This included today's physical exam, progress note, review of laboratory and diagnostic data, preparation of discharge documents and prescriptions, and discussions about the pt's hospital course and discharge plan
with the patient and other medical laboratory technologist involved in the patient's care.
Original Note:
Today's Communication/Plan
-
likely d/c later today
Assessment / Plan
Assessment / Plan
Gen: NAD, AAOx3.
Eyes: EOMI, PERRLA, no scleral icterus.
Neck: supple.
CV: remains RRR, +S1/S2, no m/r/g.
Resp: remains CTAB, no rales, wheezes, or rhonchi.
Abd: remains +BS, soft, NT, ND
Skin: No rashes.
Neuro: CN 2-12 intact, non-focal.
Psych: Normal mood and affect.
MRI brain: No acute intracranial abnormality noted. Atrophy.
Visual changes:
-currently treating his presumed temporal arteritis with Solu-Medrol (3 days of 500mg IV followed by 50-60mg daily)
-s/p temporal artery biopsy 01/20/24, follow path
-MRI brain above
-neurology following
-cont ASA/statin
Other problems:
Essential Hypertension: cont lisinopril
Hyperlipidemia: continue statin/Zetia
h/o Monoclonal gammopathy
Chronic paresthesias left arm
Esophageal dysphagia/GERD/peptic ulcer disease/hiatal hernia: continue PPI
Glaucoma
Chronic back pain/herniated disc/arthritis
FULL/SCDs
Anticipated Discharge: Today
Subjective/Interval History
-
Date of Service: January 21, 2024
c/o B/L jaw pain and headache.
Objective Data
-
Vital Signs:
Vital Signs
Temp Pulse Resp BP Pulse Ox
97.6 F 61 17 105/64 93
01/20/24 23:56 01/20/24 23:56 01/20/24 23:56 01/20/24 23:56 01/20/24 23:56
I&O
01/20/24 01/21/24 01/22/24
06:59 06:59 06:59
Intake Total 888 / 888 1258 / 1258
Balance 888 / 888 1258 / 1258
[2024-01-21 08:23] VITALS: BP 114/67
--- NOTE | 2024-01-21 09:19 | W.PN.VS ---
Today's Communication / Plan
-
See below.
Assessment/Plan
-
Assessment: 83-year-old female POD #1 bilateral temporal artery biopsy
Plan:
Continue medical management per hospitalist
Okay from discharge from a vascular surgery perspective
Follow-up placed in discharge instructions
Subjective Data
-
Date of Service: January 21, 2024
Patient seen and examined at bedside, offers no complaints.
Objective Data
-
Vital Signs
Temp Pulse Resp BP Pulse Ox
98.4 F 67 18 114/67 96
01/21/24 08:23 01/21/24 08:23 01/21/24 08:23 01/21/24 08:23 01/21/24 08:23
Intake and Output
01/20/24 01/21/24 01/22/24
06:59 06:59 06:59
Intake Total 888 / 888 1258 / 1258
Balance 888 / 888 1258 / 1258
Intake:
Oral fluids 780 / 780 1208 / 1208
IV fluids (Total) 50 / 50
NS 50 / 50
IV piggybacks 108 / 108
Other:
Number of approximated MODERATE 5 2
amounts of urine
Lab Results
01/19/24 08:21
01/19/24 08:21
Calcium 9.7 mg/dl (8.4-10.2) 01/19/24 08:21
Total Bilirubin 0.5 mg/dl (0.2-1.3) 01/18/24 11:42
AST 24 U/L (14-36) 01/18/24 11:42
ALT 15 U/L (0-35) 01/18/24 11:42
Alkaline Phosphatase 94 U/L (38-126) 01/18/24 11:42
Total Protein 6.3 g/dl (6.3-8.2) 01/18/24 11:42
Albumin 3.8 g/dl (3.5-5.0) 01/18/24 11:42
Physical Exam
-
No apparent distress, resting in bed comfortably
No tachycardia
No dyspnea on room air
Bilateral temporal surgical sites CDI, no evidence of hematoma, no evidence of edema
--- NOTE | 2024-01-21 11:56 | CM ---
Patient seen bedside, IMM signed placed in chart. Patient reports she will call her family to provide transportation upon discharge. Patient reports no needs upon discharge. CM will continue to follow for discharge planning needs.
Plan; home no needs.
[2024-01-21 12:30] VITALS: BP 116/68
--- NOTE | 2024-01-21 14:40 | W.DCSUMMARY ---
Discharge Summary
Discharge Data
Date of Admission: 01/18/24
Date of Discharge: 01/21/24
-
Pending Results: Yes
Additional Pending Results:
Pathology of temporal artery biopsy
Hospital Course
Primary diagnoses:
Diplopia, likely due to temporal arteritis
Secondary diagnoses:
Essential Hypertension
Hyperlipidemia
h/o Monoclonal gammopathy
Chronic paresthesias left arm
Esophageal dysphagia
Gastroesophageal reflux disease
Peptic ulcer disease
Hiatal hernia
Glaucoma
Chronic back pain
Herniated disc
Arthritis
Consultants:
Neurology
Vascular surgery
Imaging:
MRI brain: No acute intracranial abnormality noted. Atrophy.
Hospital course: 83-year-old female who presented with chief complaints of headache and visual changes as outlined in the H&P done on admission. ESR was 23. The history was concerning for temporal arteritis. The patient was seen by neurology and
vascular surgery. She received Solu-Medrol 500 mg IV daily for 3 days. She had a temporal artery biopsy, the pathology is pending at this time. She has been discharged on prednisone 50 mg daily with close outpatient follow-up.
Discharge Plan
-
Patient Disposition: Home (Routine Discharge)
Discharge Diagnosis/Procedures: Possible temporal arteritis
Condition: Good
Diet: Low Cholesterol
Activity: As tolerated
Driving Restrictions: As prior to admission
Activity Restrictions/Additional Instructions:
You need to follow-up the results of your temporal artery biopsy.
Stand Alone Forms: DC Instr - Vascular OR
Referrals:
Vera Martinez MD [Family Provider] -
Kadi Matthews CRNP [Specified Professional Personl] - 02/07/24 10:15 am (Vascular follow up)
Prescriptions:
New
pantoprazole 40 mg Tablet,Delayed Release (Dr/Ec)
40 mg PO DAILY Qty: 30 0RF
prednisone 50 mg tablet
50 mg PO DAILY Qty: 30 0RF
Continued
atorvastatin [Lipitor] 10 MG tablet
10 mg PO QPM
ascorbic acid (vitamin C) [Vitamin C] 500 MG tablet,chewable
500 mg PO DAILY
ezetimibe [Zetia] 10 MG tablet
10 mg PO DAILY
B-complex with vitamin C [Super B/C] 1 EACH capsule
1 tab PO DAILY
cyanocobalamin (vitamin B-12) [Vitamin B-12] 1,000 mcg Tablet
1,000 mcg PO DAILY
lisinopril 10 mg Tablet
10 mg PO DAILY
diclofenac sodium 1 % Gel
0 g TOPICAL DAILYPRN PRN (Reason: left hand)
latanoprost 0.005 % Drops
1 drp RIGHT EYE HS
psyllium Packet
1 packet PO DAILYPRN PRN (Reason: constipation)
therapeutic multivitamin Tablet
1 tab PO DAILY
aspirin 81 mg Tablet,Delayed Release (Dr/Ec)
81 mg PO DAILY
omega-3 fatty acids Capsule
1,000 mg PO DAILY
glucosam-sod chondro-vit C-fartun Tablet
2 tab PO DAILY
Discontinued
omeprazole 20 mg Tablet,Delayed Release (Dr/Ec)
20 mg PO DAILY Qty: 0
meloxicam 7.5 mg Tablet
7.5 mg PO DAILYPRN PRN (Reason: mild pain)
ibuprofen [Advil] 200 mg Tablet
200 mg PO BIDPRN PRN (Reason: mild pain)
Discharge Orders:
Discharge Patient (As Directed); Ordered 01/21/24
Ordered By: Jasen Mueller
Discharge Date and Time
Discharge Date/Time: 01/21/24 14:04
Print Language: BERMUDIAN
== END 2024-01-21 14:04 | disposition home or self-care (01) | DRG 517 ==
LOC: 4 EAST ACU 18:15
PROVIDERS: Emergency Medicine; Surgery Vascular Surgery; ADMITTING PHYSICIAN Internal Medicine; ATTENDING PHYSICIAN Internal Medicine; CONSULT PHYSICIAN Student in an Organized Health Care Education/Training Program; CONSULT PHYSICIAN Surgery Vascular Surgery; EMERGENCY PHYSICIAN Emergency Medicine; FAMILY PHYSICIAN Internal Medicine
PROC: 03BS0ZX Excision of Right Temporal Artery, Open Approach, Diagnostic (ICD-10-PCS; 2024-01-20)
PROC: 03BT0ZX Excision of Left Temporal Artery, Open Approach, Diagnostic (ICD-10-PCS; 2024-01-20)
DX: M31.6 Other giant cell arteritis (principal); I10 Essential (primary) hypertension; E78.00 Pure hypercholesterolemia, unspecified; D47.2 Monoclonal gammopathy; R20.2 Paresthesia of skin; H40.9 Unspecified glaucoma; K21.9 Gastro-esophageal reflux disease without esophagitis; K27.9 Peptic ulcer, site unspecified, unspecified as acute or chronic, without hemorrhage or perforation; K57.30 Diverticulosis of large intestine without perforation or abscess without bleeding; E66.9 Obesity, unspecified; Z68.27 Body mass index [BMI] 27.0-27.9, adult; M54.9 Dorsalgia, unspecified; G89.29 Other chronic pain; R13.14 Dysphagia, pharyngoesophageal phase; K44.9 Diaphragmatic hernia without obstruction or gangrene; E55.9 Vitamin D deficiency, unspecified; H49.20 Sixth [abducent] nerve palsy, unspecified eye
CPT/HCPCS: 88305; 37609; 70450; 70553; 80048; 80053; 85025; 85027; 85610; 85652; 86140; 87070; 88313; 93005; 96361; 96374; 99285; A9575

== ENCOUNTER 2024-02-19 16:03 | Emergency (ER) | payer MEDICARE, BC, SELFPAY ==
[2024-02-19 16:09] VITALS: BP 149/85
--- NOTE | 2024-02-19 17:42 | ED.MUSCINJ ---
HPI-Injury
General
Chief Complaint: Fall
Source: patient
Exam Limitations: none
Time Seen by Provider: 02/19/24 17:24
Travel History
Have you had any contact with someone who has COVID-19?: No
Do you have any symptoms of coronavirus? Fever > 100 degrees, chills, cough, shortness of breath, sore throat, loss of taste or smell, muscle aches, or headache?: No
History of Present Illness-Injury
Initial Injury comments:
83-year-old female not anticoagulated presents after trip and fall while walking the dog. She landed face first on the pavement. No loss conscious. She denies vision change headache or neck pain. Swollen and painful nose as well as a painful
upper tooth and laceration to the lip. She bruised her knee but has been ambulatory since then. No other complaints at this time
Past History
Past History
ED Past Medical History: GERD, HTN, Hypercholesterolemia and Other (History of back pain, difficulty swallowing, hiatal hernia, stomach ulcers, arthritis, osteoarthritis, bilateral hearing impairment)
ED Past Surgical History: Other (Right and left knee arthroscopic procedures, right total knee replacement)
Social History
Personal:
Employment: Retired
Phy Exam
Physical Exam
Physical Exam:
General: Well-appearing female no acute respiratory distress
HEENT: Normocephalic pupils reactive to light bilaterally there is subtle abnormality shape of the right pupil of which patient notes has been occurring secondary to her temporal arteritis
The nose is swollen with a laceration over the bridge of the nose measuring about half a centimeter. The nose is currently packed with cotton. The facial bones are otherwise nontender including the forehead the maxilla and mandible. The maxillary
central incisors are slightly tender but not loose. There is a laceration to the upper lip on the mucosal surface measuring 1 cm
Musculoskeletal exam: The spine is nontender
Neurologic: Alert and oriented x 3
Injury Course
Orders/Labs/Results
Orders:
Orders
02/19/24 16:12
CR Facial Bones < 3 Views Urgent
Comment:
Reason For Exam: fall
MDM/Problems Addressed
Differential Diagnosis Includes:
Mechanical fall nasal swelling and pain. Question possible contusion versus fracture. There are also lacerations to the nose and upper lip. X-rays of the facial bones were ordered through triage which I personally reviewed and they demonstrate
distal nasal bone fractures but no other facial fracture.
*Critical Care Note
Total Time (30-74mins, 75-104mins- exclusive of procedures): Not Applicable
Update Note
Update Note:
Review of the x-rays does demonstrate distal nasal bone fractures. The cotton was removed from her nose and there was no septal hematoma no further bleeding. Laceration on the bridge of the nose was closed with three 5-0 Prolene sutures. The
upper lip laceration was closed with number three 5-0 Vicryl sutures. Wounds were closed and cleansed and dressed with antibacterial ointment. Patient stable for discharge
ED Attending Note
-
Portions of this chart may have been created with voice recognition software.� Occasional wrong word or��sound alike� substitutions may have occurred due to the inherent limitations of voice recognition software.
Discharge Plan
Departure
Patient Disposition: Home (Routine Discharge)
Date of Disposition: 02/19/24
Time of Disposition: 18:32
Patient with high blood pressure during this ER visit?: No
Discharge Problem:
Laceration, Fracture, nasal
Instructions: Laceration Repair With Stitches (DC)
Prescriptions:
No Action
atorvastatin [Lipitor] 10 MG tablet
10 mg PO QPM
ascorbic acid (vitamin C) [Vitamin C] 500 MG tablet,chewable
500 mg PO DAILY
ezetimibe [Zetia] 10 MG tablet
10 mg PO DAILY
B-complex with vitamin C [Super B/C] 1 EACH capsule
1 tab PO DAILY
cyanocobalamin (vitamin B-12) [Vitamin B-12] 1,000 mcg Tablet
1,000 mcg PO DAILY
lisinopril 10 mg Tablet
10 mg PO DAILY
diclofenac sodium 1 % Gel
0 g TOPICAL DAILYPRN PRN (Reason: left hand)
latanoprost 0.005 % Drops
1 drp RIGHT EYE HS
psyllium Packet
1 packet PO DAILYPRN PRN (Reason: constipation)
therapeutic multivitamin Tablet
1 tab PO DAILY
aspirin 81 mg Tablet,Delayed Release (Dr/Ec)
81 mg PO DAILY
omega-3 fatty acids Capsule
1,000 mg PO DAILY
glucosam-sod chondro-vit C-fartun Tablet
2 tab PO DAILY
pantoprazole 40 mg Tablet,Delayed Release (Dr/Ec)
40 mg PO DAILY Qty: 30 0RF
prednisone 50 mg tablet
50 mg PO DAILY Qty: 30 0RF
Referrals:
Vera Martinez MD [Family Provider] -
Activity Restrictions/Additional Instructions:
Ice to the sore spot. Use Tylenol for pain. Use antibacterial into the wounds. Have sutures removed on the nose in about 7 days. The sutures in the lip will dissolve on their own.
Interventions
Interventions:
*Risk Screen - Suicide Last Done: 02/19/24 16:09
*General Assessment Last Done: 02/19/24 16:09
*Neglect/Abuse Screening Last Done: 02/19/24 16:09
Discharge Date and Time
Print Language: MALTESE
[2024-02-19 18:38] VITALS: BP 174/96
== END 2024-02-19 19:01 | disposition home or self-care (01) ==
LOC: EMR 16:03
PROVIDERS: EMERGENCY PHYSICIAN Student in an Organized Health Care Education/Training Program; FAMILY PHYSICIAN Internal Medicine
DX: S01.511A Laceration without foreign body of lip, initial encounter (principal); S02.2XXA Fracture of nasal bones, initial encounter for closed fracture; W01.0XXA Fall on same level from slipping, tripping and stumbling without subsequent striking against object, initial encounter
CPT/HCPCS: 99283; 12011; 70140

== ENCOUNTER → 2024-04-30 14:30 | Outpatient (REF) | payer MEDICARE, BC, SELFPAY | LOC: RAD 14:30 | PROVIDERS: ATTENDING PHYSICIAN Internal Medicine Rheumatology | DX: G89.29 Other chronic pain (principal); M19.012 Primary osteoarthritis, left shoulder; M25.511 Pain in right shoulder; M25.561 Pain in right knee; M25.562 Pain in left knee; M31.6 Other giant cell arteritis; M75.102 Unspecified rotator cuff tear or rupture of left shoulder, not specified as traumatic; M75.52 Bursitis of left shoulder; R68.84 Jaw pain; Z13.220 Encounter for screening for lipoid disorders; Z68.29 Body mass index [BMI] 29.0-29.9, adult; Z79.52 Long term (current) use of systemic steroids | CPT/HCPCS: 70330 ==

== ENCOUNTER 2024-07-29 15:29 | Emergency (ER) | payer MEDICARE, BC, SELFPAY ==
[2024-07-29 15:32] VITALS: BP 112/79
[2024-07-29 15:59] VITALS: BMI 28.5
[2024-07-29 16:00] VITALS: BP 104/85
[2024-07-29 16:22] LABS: % Basophils 0.7 % (0-2); % Eosinophils 0.1 % (0-6); % Immature Granulocytes 0.3 % (0-0.5); % Lymphocytes 16.7 % (20.5-51.1); % Neutrophils 76.2 % (42.2-75.2); Absolute Basophils 0.1 10^3/uL (0-0.2); Absolute Lymphocytes 1.1 10^3/uL (1.2-3.4); Absolute Monocytes 0.4 10^3/uL (0.1-0.6); Absolute Neutrophils 5.2 10^3/uL (1.4-6.5); Hematocrit 45.7 % (37.0-47.0); Hemoglobin 15.5 g/dL (12.0-16.0); Mean Corp Hgb Conc. 33.9 g/dL (33.0-37.0); Mean Corpuscular Hgb 29.8 pg (27.0-31.0); Mean Corpuscular Volume 87.9 fL (81.0-99.0); Mean Platelet Volume 9.2 fL (7.4-10.4); Nucleated Red Blood Cells % 0 %; Platelet Count 220 10^3/uL (130-400); Red Cell Dist. Width 14.6 % (11.5-14.5); White Blood Cell Count 6.8 10^3/uL (4.8-10.8)
[2024-07-29 16:37] LABS: Erythrocyte Sed Rate 6 mm/hour (0-20)
[2024-07-29 16:47] LABS: ALT (SGPT) 22 U/L (0-35); AST (SGOT) 28 U/L (14-36); Albumin 4.3 g/dl (3.5-5.0); Alkaline Phosphatase 42 U/L (38-126); Blood Urea Nitrogen 25 mg/dl (7-17); Calcium 9.8 mg/dl (8.4-10.2); Carbon Dioxide 23 mmol/L (22-30); Chloride 105 mmol/L (98-107); Estimated Creatinine Clearance 56 ml/min; Glucose 117 mg/dl (70-99); Potassium 4.4 mmol/L (3.5-5.1); Sodium 141 mmol/L (135-145); Total Bilirubin 0.5 mg/dl (0.2-1.3); Total Protein 6.4 g/dl (6.3-8.2); eGFR > 60.00
[2024-07-29 17:03] VITALS: BP 120/75
[2024-07-29 17:05] LABS: C-Reactive Protein < 5.00 mg/L (0.0-10.00)
[2024-07-29 18:00] VITALS: BP 93/54
--- NOTE | 2024-07-29 18:23 | ED.GENMED ---
History of Present Illness
General
Chief Complaint: Visual Problem
Source: patient
Exam Limitations: none
Time Seen by Provider: 07/29/24 15:58
Nursing documentation reviewed up to this point in time: agreed with
History of Present Illness
History of Present Illness:
83-year-old female with past medical history of hypertension, hyperlipidemia, GERD, biopsy-proven temporal arteritis who presents to the emergency department for evaluation of blurry vision. Patient was diagnosed with temporal arteritis in December
and was started on steroids and has been following with rheumatology (Dr. Prabhakar). She has been tapering down on the steroids, most recent taper on 07/17 was decreased from 15 mg p.o. prednisone daily down to 10 mg p.o. daily. Patient reports that
over the past few weeks she has noticed that her vision is not quite as 'crisp.' She reports that she has very poor vision in her right eye chronically status post cataract requiring surgery, left eye is her 'good' eye and has been blurry. She
describes vision 'like looking through a film.' She says that over the past week she feels it is even worse, she referred her to the ER to be evaluated. Blurriness seems to be worse at the end of the day particularly with reading. She denies any
vision loss. She denies any headache. She has had pain in her jaw related to temporal arteritis but no acute change. She denies any pain in the eyes. She denies any trauma to the eyes. She does wear glasses, no contacts. She has seen an
hydrostatic tubing tester in the past Dr. Collins for her cataract surgery but not recently.
Past History
Past History
ED Past Medical History: GERD, HTN, Hypercholesterolemia and Other (History of back pain, difficulty swallowing, hiatal hernia, stomach ulcers, arthritis, osteoarthritis, bilateral hearing impairment)
ED Past Surgical History: Other (Right and left knee arthroscopic procedures, right total knee replacement)
Social History
Personal:
Employment: Retired
Review of Systems
Review of Systems
All Other Systems: ROS reviewed and negative except as documented in HPI and ROS
Constitutional: Denies fever
EENT: Reports other (Blurry vision)
Neurological: Denies dizzy or headache
Phy Exam
Physical Exam
Physical Exam:
General: Awake, alert, oriented x3; no acute distress
Head: Normocephalic, atraumatic, no tenderness along the temporal artery
Eyes: Conjunctiva normal, right pupil is oblong status post cataract surgery, left pupil round, 4 mm and reactive to light; extraocular movements are intact; visual acuity as noted in nursing note
Throat: Airway intact, handling secretions
Neck: Trachea midline, supple without meningismus
Lungs: Breathing comfortably no distress
Heart: Regular rate
Neuro: Cranial nerves intact, speech fluid, no motor or sensory deficits
Skin: no rash
Extremities: Warm and well-perfused with no edema
Scores
Heart Failure Risk
Heart Failure Risk Score: Not Applicable
Heart Score for Chest Pain Patients
STEMI patient?: Not applicable
Withdrawal Assessment of Alcohol
Withdrawal Assessment Completed?: Not applicable
Course
Orders/Labs/Results
Orders:
Orders
07/29/24 16:00
CT Head W/o Iv Contrast Urgent
Comment:
Reason For Exam: worsening vision
07/29/24 16:10
CRP [C-Reactive Protein] Urgent
Complete Blood Count/With Diff Urgent
Comprehensive Metabolic Panel Urgent
ESR [Erythrocyte Sed Rate] Urgent
07/29/24 16:30
Visual Acuity- Treatment ONCE
Abnormal Lab Results
07/29/24
16:10
RDW 14.6 H %
(11.5-14.5)
Absolute Lymphs (auto) 1.1 L 10^3/uL
(1.2-3.4)
Neutrophils % 76.2 H %
(42.2-75.2)
Lymphocytes % 16.7 L %
(20.5-51.1)
BUN 25 H mg/dl
(7-17)
Glucose 117 H mg/dl
(70-99)
07/29/24 16:10
07/29/24 16:10
Vital Signs
Initial and Last Documented VS:
Initial Vital Signs
Temp Pulse Resp BP Pulse Ox
36.8 C 93 16 112/79 97
07/29/24 15:32 07/29/24 15:32 07/29/24 15:32 07/29/24 15:32 07/29/24 15:32
Last Documented Vital Signs
Temp Pulse Resp BP Pulse Ox
36.8 C 70 15 93/54 94
07/29/24 15:32 07/29/24 18:00 07/29/24 18:00 07/29/24 18:00 07/29/24 18:00
MDM/Problems Addressed
Differential Diagnosis Includes:
CVA, temporal arteritis, myasthenia gravis, cataract, lens dislocation
MDM/Problems Addressed:
83-year-old female with recent history as above presents with gradually worsening blurry vision in the setting of recent treatment for temporal arteritis. Referred by her credit clerk for assessment. I spoke directly with the credit clerk to
discuss treatment plan�will check labs and inflammatory markers. Will check CT head. Will discuss with ophthalmology. If ESR and CRP not markedly elevated rheumatology recommending increasing prednisone to 30 mg p.o. daily and urgent
ophthalmology follow-up.
Labs reviewed: CBC and CMP unremarkable. ESR and CRP are normal. CT head negative for any acute pathology. Will increase prednisone to 30 mg p.o. daily�patient says she does not need a refill prescription she has 'way too much' leftover
prednisone. She will take 2 additional tabs when she goes home and start taking three 10 mg tabs daily until she sees rheumatology and follow-up. I discussed the case with ophthalmology (Dr. Patel), he can see patient in the office tomorrow
afternoon. Patient feels comfortable to this plan. We spoke in detail about return precautions including any vision loss. All questions answered.
*Radiology
Radiology exam reviewed: radiology read reviewed
*Pulse Oximetry
Patient hypoxic: no
*Critical Care Note
Total Time (30-74mins, 75-104mins- exclusive of procedures): Not Applicable
Data Reviewed
Review of Other/Old Records Reveals: Labs, Records and Discharge Summary
Source: patient
Patient Management
Discussion with other providers: Mold Setter (Second discussed with rheumatology, discussed with ophthalmology)
ED Attending Note
-
Portions of this chart may have been created with voice recognition software.� Occasional wrong word or��sound alike� substitutions may have occurred due to the inherent limitations of voice recognition software.
Discharge Plan
Departure
Patient Disposition: Home (Routine Discharge)
Date of Disposition: 07/29/24
Time of Disposition: 18:37
Patient with high blood pressure during this ER visit?: No
Discharge Problem:
Blurred vision
Instructions: Double Vision (DC)
Prescriptions:
No Action
atorvastatin [Lipitor] 10 MG tablet
10 mg PO QPM
ascorbic acid (vitamin C) [Vitamin C] 500 MG tablet,chewable
500 mg PO DAILY
ezetimibe [Zetia] 10 MG tablet
10 mg PO DAILY
B-complex with vitamin C [Super B/C] 1 EACH capsule
1 tab PO DAILY
cyanocobalamin (vitamin B-12) [Vitamin B-12] 1,000 mcg Tablet
1,000 mcg PO DAILY
lisinopril 10 mg Tablet
10 mg PO DAILY
diclofenac sodium 1 % Gel
0 g TOPICAL DAILYPRN PRN (Reason: left hand)
latanoprost 0.005 % Drops
1 drp RIGHT EYE HS
psyllium Packet
1 packet PO DAILYPRN PRN (Reason: constipation)
therapeutic multivitamin Tablet
1 tab PO DAILY
aspirin 81 mg Tablet,Delayed Release (Dr/Ec)
81 mg PO DAILY
omega-3 fatty acids Capsule
1,000 mg PO DAILY
glucosam-sod chondro-vit C-fartun Tablet
2 tab PO DAILY
pantoprazole 40 mg Tablet,Delayed Release (Dr/Ec)
40 mg PO DAILY Qty: 30 0RF
prednisone 50 mg tablet
50 mg PO DAILY Qty: 30 0RF
Referrals:
Ruben Patel MD [Active] - Tomorrow (Call the office first thing tomorrow morning to schedule appointment for tomorrow afternoon)
Yara Prabhakar MD [Active] - Call in 1-3 days for appt
Vera Del Valle MD [Family Provider] -
Activity Restrictions/Additional Instructions:
Thank you for visiting the Emergency Department at [facility].
1. Please schedule a follow up appointment as directed. Call first thing tomorrow morning to make an appointment.
2. If indicated, please take your medications as instructed and indicated on discharge paperwork.
3. If any of your symptoms do not improve, or persist, or become more severe within 6-12 hours, please return to the emergency department for further care.
4. Please return to the emergency department if you develop a headache, neck pain/stiffness, fever greater than 100.4F, chest pain, shortness of breath, persistent nausea, vomiting, slurred speech, difficulty walking, numbness/tingling, weakness,
signs of infection or any other symptoms that are worrisome to you.
Please call [phone] if you have any questions.
Interventions
Interventions:
*Risk Screen - Suicide Last Done: 07/29/24 15:59
*General Assessment Last Done: 07/29/24 15:59
*Neglect/Abuse Screening Last Done: 07/29/24 15:59
ED- Fall Risk Assessment Last Done: 07/29/24 15:59
*ED COVID-19 Vaccine History Last Done: 07/29/24 15:59
ED-EENT Assessment Last Done: 11/06/24 18:09
ED- Neurological Assessment Last Done: 07/29/24 16:38
Discharge Date and Time
Print Language: OCCITAN
== END 2024-07-29 18:49 | disposition home or self-care (01) ==
LOC: EMR 15:29
PROVIDERS: EMERGENCY PHYSICIAN Emergency Medicine; FAMILY PHYSICIAN Internal Medicine Geriatric Medicine
DX: H53.8 Other visual disturbances (principal); M31.6 Other giant cell arteritis; E78.00 Pure hypercholesterolemia, unspecified; I10 Essential (primary) hypertension; K21.9 Gastro-esophageal reflux disease without esophagitis; Z79.52 Long term (current) use of systemic steroids
CPT/HCPCS: 99284; 70450; 80053; 85025; 85652; 86140

== ENCOUNTER → 2024-11-16 13:47 | Outpatient (REF) | payer MEDICARE, BC, SELFPAY | LOC: HWRAD 13:47 | PROVIDERS: ATTENDING PHYSICIAN Internal Medicine Geriatric Medicine; REFERRING PHYSICIAN Nurse Practitioner Adult Health | DX: M85.80 Other specified disorders of bone density and structure, unspecified site (principal); Z12.31 Encounter for screening mammogram for malignant neoplasm of breast; Z78.0 Asymptomatic menopausal state | CPT/HCPCS: 77063; 77067; 77080 ==

== ENCOUNTER → 2024-11-20 09:25 | Outpatient (REF) | payer MEDICARE, BC, SELFPAY | LOC: WDC 09:25 | PROVIDERS: ATTENDING PHYSICIAN Internal Medicine Geriatric Medicine | DX: R92.8 Other abnormal and inconclusive findings on diagnostic imaging of breast (principal) | CPT/HCPCS: 76642 ==

== ENCOUNTER → 2024-12-03 09:01 | Outpatient (REF) | payer MEDICARE, BC, SELFPAY | LOC: HWRAD 09:01 | PROVIDERS: ATTENDING PHYSICIAN Orthopaedic Surgery Hand Surgery; FAMILY PHYSICIAN Internal Medicine Geriatric Medicine | DX: M12.811 Other specific arthropathies, not elsewhere classified, right shoulder (principal) | CPT/HCPCS: 73200 ==

== ENCOUNTER → 2025-02-03 12:11 | Outpatient (REF) | payer MEDICARE, BC, SELFPAY | LOC: MRI 3T 12:11 | PROVIDERS: ATTENDING PHYSICIAN Orthopaedic Surgery Hand Surgery; FAMILY PHYSICIAN Internal Medicine Geriatric Medicine | DX: M79.601 Pain in right arm (principal); M12.811 Other specific arthropathies, not elsewhere classified, right shoulder | CPT/HCPCS: 73223; A9575 ==

== ENCOUNTER → 2025-02-05 10:39 | Outpatient (REF) | payer MEDICARE, BC, SELFPAY | LOC: MRI 10:39 | PROVIDERS: ATTENDING PHYSICIAN Physician Assistant; FAMILY PHYSICIAN Internal Medicine Geriatric Medicine | DX: M54.16 Radiculopathy, lumbar region (principal) | CPT/HCPCS: 72148 ==

== ENCOUNTER → 2025-02-22 09:55 | Outpatient (REF) | payer MEDICARE, BC, SELFPAY | LOC: EMG 09:55 | PROVIDERS: ATTENDING PHYSICIAN Orthopaedic Surgery Hand Surgery; FAMILY PHYSICIAN Internal Medicine Geriatric Medicine | DX: M12.811 Other specific arthropathies, not elsewhere classified, right shoulder (principal); M79.602 Pain in left arm; M79.601 Pain in right arm; R20.0 Anesthesia of skin; G56.03 Carpal tunnel syndrome, bilateral upper limbs | CPT/HCPCS: 95886; 95911 ==

== ENCOUNTER → 2025-03-04 12:23 | Outpatient (REF) | payer MEDICARE, BC, SELFPAY ==
[2025-03-04 13:13] LABS: % Basophils 0.7 % (0-2); % Eosinophils 2.6 % (0-6); % Immature Granulocytes 0.5 % (0-0.5); % Lymphocytes 35.2 % (20.5-51.1); % Monocytes 15.1 % (1.7-9.3); % Neutrophils 45.9 % (42.2-75.2); Absolute Eosinophils 0.1 10^3/uL (0-0.7); Absolute Lymphocytes 1.5 10^3/uL (1.2-3.4); Absolute Monocytes 0.6 10^3/uL (0.1-0.6); Absolute Neutrophils 1.9 10^3/uL (1.4-6.5); Hematocrit 43.2 % (37.0-47.0); Hemoglobin 14.3 g/dL (12.0-16.0); Mean Corp Hgb Conc. 33.1 g/dL (33.0-37.0); Mean Corpuscular Hgb 29.5 pg (27.0-31.0); Mean Corpuscular Volume 89.3 fL (81.0-99.0); Mean Platelet Volume 9.4 fL (7.4-10.4); Nucleated Red Blood Cells % 0 %; Platelet Count 200 10^3/uL (130-400); Red Blood Cell Count 4.84 10^6/uL (4.20-5.40); Red Cell Dist. Width 13.1 % (11.5-14.5); White Blood Cell Count 4.2 10^3/uL (4.8-10.8)
[2025-03-04 13:53] LABS: Blood Urea Nitrogen 23 mg/dl (7-17); Calcium 9.4 mg/dl (8.4-10.2); Carbon Dioxide 27 mmol/L (22-30); Chloride 110 mmol/L (98-107); Glucose 92 mg/dl (70-99); Potassium 4.4 mmol/L (3.5-5.1); Sodium 142 mmol/L (135-145); eGFR > 60.00
== END ==
LOC: REG 12:23
PROVIDERS: ATTENDING PHYSICIAN Orthopaedic Surgery Hand Surgery; FAMILY PHYSICIAN Internal Medicine Geriatric Medicine
DX: Z01.818 Encounter for other preprocedural examination (principal)
CPT/HCPCS: 36415; 80048; 85025; 93005

== ENCOUNTER 2025-03-16 06:11 | Day surgery (SDC) | payer MEDICARE, BC, SELFPAY ==
--- NOTE | 2025-03-10 11:46 | CM ---
CM spoke with patient via live telephone. Patient had multiple questions regarding her surgery and upcoming PAT appointments. Cm confirmed that patient will not need to see PAT Ortho PA as per office.
CM left message to update patient.
--- NOTE | 2025-03-10 14:00 | CM ---
Cm spoke with patient via phone. CM confirmed with patient that she does not need to be seen by BECKY MCLAUGHLIN. Patient requested clarification regarding her ASA. CM referred patient to [facility] educational packet.
[2025-03-16] VITALS (14 sets, daily range): BP systolic 112–152; BP diastolic 73–109; BMI 28.5
[2025-03-16] MEDS: TYLENOL 1000 MG PO (07:21)
[2025-03-16] MEDS: CELEBREX 200 MG PO (07:22)
[2025-03-16] MEDS: NORMOSOL-R/PLASMALYTE-A 1000 IV (07:23)
== END 2025-03-16 12:40 | disposition home or self-care (01) ==
LOC: SDS 06:11
PROVIDERS: ATTENDING PHYSICIAN Orthopaedic Surgery Hand Surgery
DX: M75.101 Unspecified rotator cuff tear or rupture of right shoulder, not specified as traumatic (principal); M19.011 Primary osteoarthritis, right shoulder; G56.01 Carpal tunnel syndrome, right upper limb; Z96.611 Presence of right artificial shoulder joint
CPT/HCPCS: 23472; 64721; C1776; 73020; C1713

== ENCOUNTER → 2025-06-17 13:51 | Outpatient (REF) | payer BC, MEDICARE, SELFPAY | LOC: WDC 13:51 | PROVIDERS: ATTENDING PHYSICIAN Internal Medicine Geriatric Medicine | DX: R92.8 Other abnormal and inconclusive findings on diagnostic imaging of breast (principal) | CPT/HCPCS: 76642 ==